=== PATIENT | female | born 1975 | race African-American/Black ===

== ENCOUNTER 2020-06-14 15:36 | Emergency (ER) | payer BC ==
[2020-06-14] MEDS ORDERED: Ketorolac Tromethamine 30 MG/ML VIAL ONE (16:45)
== END 2020-06-14 18:00 | disposition home or self-care (01) ==
LOC: CSHERS 15:36
DX: M79.89 Other specified soft tissue disorders (principal); M79.662 Pain in left lower leg; E11.9 Type 2 diabetes mellitus without complications; I10 Essential (primary) hypertension; E66.9 Obesity, unspecified; Z79.84 Long term (current) use of oral hypoglycemic drugs; Z79.52 Long term (current) use of systemic steroids; Z79.899 Other long term (current) drug therapy
CPT/HCPCS: 96372; J1885

== ENCOUNTER 2021-01-01 09:31 | Emergency (ER) | payer BC, MEDICAID ==
[2021-01-01] MEDS ORDERED: Morphine 4 MG/ML VIAL ONE (10:52)
[2021-01-01] MEDS ORDERED: Ondansetron PF 4 MG/2 ML Vial ONE (10:53)
[2021-01-01 11:17] LABS: #Eosinphils 0.1 10x3/uL (0.0-0.5); #Monocytes 0.4 10x3/uL (0.0-1.1); #Neutrophils 3.3 10x3/uL (1.5-8.4); %Basophils 0.5 % (0.0-2.0); %Eosinophils 1.9 % (0.0-6.0); %Neutrophils 57.4 % (40.0-75.0); Hemoglobin 12.4 g/dL (12.0-15.5); Mean Corpuscular HGB CONC 31.2 g/dL (32.0-36.0); Mean Corpuscular Hemoglobin 25.6 pg (27.0-33.0); Mean Platelet Volume 9.3 fl (7.4-10.4); Platelet Count 338 10x3/uL (150-450); RBC Distribution Width 13.2 % (11.5-14.5); Red Blood Cell (RBC) Count 4.84 10x6/uL (3.90-5.03); White Blood Cell (WBC) Count 5.7 10x3/uL (3.5-10.5)
[2021-01-01 11:27] LABS: ALT (SGPT) 13 U/L (8-55); AST (SGOT) 12 U/L (5-34); Albumin 4.2 g/dL (3.5-5.0); Alkaline Phosphatase 59 U/L (40-110); Anion Gap 14 mmol/L (10-20); BUN (Urea Nitrogen) 9 mg/dL (7.0-18.7); Bilirubin, Total 0.5 mg/dL (0.2-1.2); Calc. Creatinine Clearance 0 mL/min (70-130); Carbon Dioxide 23 mmol/L (22-29); Chloride 104 mmol/L (98-107); Globulin 2.9 g/dL (2.4-3.5); Glucose 117 mg/dL (70-105); Potassium 3.9 mmol/L (3.5-5.1); Protein, Total 7.1 g/dL (6.0-8.3); Sodium 137 mmol/L (136-145)
[2021-01-01] MEDS ORDERED: Ketorolac Tromethamine 30 MG/ML VIAL ONE (12:24)
[2021-01-01] MEDS ORDERED: Diazepam 5 MG TAB ONE (12:24)
== END 2021-01-01 12:35 | disposition home or self-care (01) ==
LOC: CSHERS 09:31
DX: M79.621 Pain in right upper arm (principal); M54.9 Dorsalgia, unspecified; I10 Essential (primary) hypertension; Z79.899 Other long term (current) drug therapy
CPT/HCPCS: 74176; 80053; 84484; 85025; 93005; 96374; 96375; J1885; J2270; J2405

== ENCOUNTER → 2021-01-29 14:44 | Emergency (ER) | payer BC, MEDICAID ==
[2021-01-29 16:07] LABS: Hemoglobin 11.8 g/dL (12.0-15.5); Mean Corpuscular Volume 80.5 fl (81.6-98.3); Red Blood Cell (RBC) Count 4.57 10x6/uL (3.90-5.03)
[2021-01-29 16:08] LABS: #Monocytes 0.3 10x3/uL (0.0-1.1); #Neutrophils 1.9 10x3/uL (1.5-8.4); %Lymphocytes 44.9 % (18.0-47.0); %Monocytes 6.7 % (0.0-10.0); %Neutrophils 48.2 % (40.0-75.0); Mean Corpuscular HGB CONC 32.1 g/dL (32.0-36.0); Mean Corpuscular Hemoglobin 25.8 pg (27.0-33.0); Mean Platelet Volume 9.9 fl (7.4-10.4); Platelet Count 210 10x3/uL (150-450); RBC Distribution Width 13.2 % (11.5-14.5)
[2021-01-29 16:22] LABS: ALT (SGPT) 18 U/L (8-55); AST (SGOT) 21 U/L (5-34); Albumin 3.9 g/dL (3.5-5.0); Alkaline Phosphatase 48 U/L (40-110); Anion Gap 11 mmol/L (10-20); BUN (Urea Nitrogen) 7 mg/dL (7.0-18.7); Bilirubin, Total 0.7 mg/dL (0.2-1.2); Calc. Creatinine Clearance 0 mL/min (70-130); Calcium 8.2 mg/dL (7.8-10.44); Carbon Dioxide 27 mmol/L (22-29); Chloride 100 mmol/L (98-107); Globulin 3.3 g/dL (2.4-3.5); Glucose 127 mg/dL (70-105); Potassium 3.4 mmol/L (3.5-5.1); Protein, Total 7.2 g/dL (6.0-8.3); Sodium 135 mmol/L (136-145)
[2021-01-30 08:53] LABS: SARS-CoV-2 PCR by NAA DETECTED (NotDetected)
== END | disposition home or self-care (01) ==
LOC: CSHERS 14:44
DX: U07.1 COVID-19 (principal); I10 Essential (primary) hypertension
CPT/HCPCS: 71045; 80053; 85025; 93005; 93010; U0003; U0005

== ENCOUNTER 2021-02-04 17:55 | Inpatient (IN) | payer BC, MEDICAID ==
[2021-02-04] MEDS ORDERED: Dexamethasone 10 MG/ML VIAL ONE (18:33)
[2021-02-04 19:46] LABS: Hemoglobin 10.5 g/dL (12.0-15.5); Mean Corpuscular HGB CONC 31.8 g/dL (32.0-36.0); Mean Corpuscular Hemoglobin 25.7 pg (27.0-33.0); Mean Corpuscular Volume 80.7 fl (81.6-98.3); Mean Platelet Volume 10.3 fl (7.4-10.4); Platelet Count 394 10x3/uL (150-450); RBC Distribution Width 13.3 % (11.5-14.5); Red Blood Cell (RBC) Count 4.09 10x6/uL (3.90-5.03); White Blood Cell (WBC) Count 7.5 10x3/uL (3.5-10.5)
[2021-02-04 19:47] LABS: ALT (SGPT) 34 U/L (8-55); AST (SGOT) 60 U/L (5-34); Albumin 3.9 g/dL (3.5-5.0); Alkaline Phosphatase 50 U/L (40-110); Anion Gap 15 mmol/L (10-20); BUN (Urea Nitrogen) 9 mg/dL (7.0-18.7); Bilirubin, Total 1.1 mg/dL (0.2-1.2); Calc. Creatinine Clearance 0 mL/min (70-130); Calcium 8.4 mg/dL (7.8-10.44); Carbon Dioxide 27 mmol/L (22-29); Chloride 96 mmol/L (98-107); Globulin 3.5 g/dL (2.4-3.5); Glucose 133 mg/dL (70-105); Potassium 3.6 mmol/L (3.5-5.1); Protein, Total 7.4 g/dL (6.0-8.3); Sodium 134 mmol/L (136-145)
[2021-02-04 20:11] LABS: MDiff Complete? YES
[2021-02-04 20:14] LABS: Lymphocytes 23 % (21-51); Monocytes 3 % (0-10); Neutrophil 70 % (42-75); Reactive Lymphocytes 4 % (0-10)
[2021-02-04 20:16] LABS: Platelet Morphology Comment Appears Adequate; RBC Morphology Normal
[2021-02-04 20:30] LABS: BHCG - Serum Negative (NEGATIVE); Pregs Control Background? CLEAR/WHITE (CLR/WHITE); Pregs Control Bar Appear? YES (CONTROL BAR)
[2021-02-04] MEDS ORDERED: Ondansetron PF 4 MG/2 ML Vial IVP PRN (20:58)
[2021-02-04] MEDS ORDERED: Acetaminophen 325 MG TAB PO PRN (20:58)
[2021-02-04] MEDS ORDERED: Senokot S 8.6-50 MG TAB PO PRN (20:58)
[2021-02-04] MEDS ORDERED: Ondansetron ODT 4 MG TAB PO PRN (20:58)
[2021-02-04 21:19] LABS: CRP (Inflammatory) 10.81 mg/dL (= or < 0.5); Magnesium 2.2 mg/dL (1.6-2.6)
[2021-02-04] MEDS ORDERED: Aspirin 81 mg Enteric Coated Tablet PO SCH (22:00)
[2021-02-04] MEDS: Zinc Sulfate 220 MG CAP PO SCH (22:21)
[2021-02-04] MEDS: Ascorbic Acid 500 mg Chewable Tablet PO SCH (22:21)
[2021-02-04] MEDS: Guaifenesin DM 100-10/5 ML UDCUP PO PRN (22:22)
[2021-02-04 22:37] VITALS: BMI 43.2
[2021-02-04] MEDS ORDERED: FLU VACC QS2021-22(6MOS UP)/PF 60 MCG/0.5 ML SYRINGE IM ONE (23:00)
[2021-02-05 06:12] LABS: Anion Gap 15 mmol/L (10-20); BUN (Urea Nitrogen) 10 mg/dL (7.0-18.7); CRP (Inflammatory) 9.87 mg/dL (= or < 0.5); Calc. Creatinine Clearance 161 mL/min (70-130); Calcium 8.7 mg/dL (7.8-10.44); Carbon Dioxide 26 mmol/L (22-29); Chloride 99 mmol/L (98-107); Glucose 187 mg/dL (70-105); Potassium 3.7 mmol/L (3.5-5.1); Sodium 136 mmol/L (136-145)
[2021-02-05 06:59] LABS: Hemoglobin 10.7 g/dL (12.0-15.5); Mean Corpuscular Hemoglobin 25.5 pg (27.0-33.0); Mean Corpuscular Volume 79.5 fl (81.6-98.3); Platelet Count 416 10x3/uL (150-450); RBC Distribution Width 13.4 % (11.5-14.5)
[2021-02-05 07:31] LABS: MDiff Complete? YES
[2021-02-05 08:05] LABS: Band 3 % (5-11); Lymphocytes 20 % (21-51); Metamyelocyte 1 % (0-0); Monocytes 5 % (0-10); Neutrophil 67 % (42-75); Reactive Lymphocytes 4 % (0-10)
[2021-02-05 08:07] LABS: Hypochromia SLIGHT = 6-15 cells (100X) (0-5/hpf); Microcytosis SLIGHT = 6-15 cells (100X) (0-5/hpf); Platelet Morphology Comment Appears Adequate; Polychromasia SLIGHT = 2-3 cells (100X) (0-2/hpf)
[2021-02-05] MEDS: Enoxaparin Sodium 40 MG/0.4 ML SYRINGE SC SCH (08:57)
[2021-02-05] MEDS: Aspirin 81 mg Enteric Coated Tablet PO SCH (08:58)
[2021-02-05] MEDS ORDERED: Dexamethasone 4 mg/ml Vial SLOW IVP SCH (09:00)
[2021-02-05] MEDS ORDERED: REMDESIVIR 200 MG in Sodium Chloride 0.9% 250 ML 210 ML IV SCH (10:30)
[2021-02-05] MEDS: Mometasone 200 MCG/PUFF (1 INHALER) INH SCH ×2 (10:45→19:45)
[2021-02-05] MEDS: Cholecalciferol 1,000 UNITS (25 MCG) TAB PO SCH (21:00)
[2021-02-05] MEDS: Ascorbic Acid 500 mg Chewable Tablet PO SCH (22:09)
[2021-02-05] MEDS: Zinc Sulfate 220 MG CAP PO SCH (22:09)
[2021-02-06 05:59] LABS: ALT (SGPT) 30 U/L (8-55); AST (SGOT) 33 U/L (5-34); Albumin 3.5 g/dL (3.5-5.0); Alkaline Phosphatase 48 U/L (40-110); Bilirubin, Direct 0.4 mg/dL (0.1-0.3); Bilirubin, Total 0.8 mg/dL (0.2-1.2)
[2021-02-06] MEDS: Enoxaparin Sodium 40 MG/0.4 ML SYRINGE SC SCH (08:55)
[2021-02-06] MEDS: Aspirin 81 mg Enteric Coated Tablet PO SCH (08:55)
[2021-02-06] MEDS ORDERED: BARICITINIB 2 MG TAB PO SCH (09:00)
[2021-02-06] MEDS: REMDESIVIR 100 MG in Sodium Chloride 0.9% 250 ML 230 ML IV SCH (09:00)
[2021-02-06] MEDS ORDERED: Dexamethasone 20 MG/5 ML VIAL SLOW IVP SCH (09:00)
[2021-02-06] MEDS ORDERED: Dexamethasone 10 MG in Sodium Chloride 0.9% 50 ML IVPB SCH (09:00)
[2021-02-06] MEDS: Mometasone 200 MCG/PUFF (1 INHALER) INH SCH ×2 (14:38→20:00)
[2021-02-07] MEDS: Ascorbic Acid 500 mg Chewable Tablet PO SCH ×2 (06:07→06:08)
[2021-02-07] MEDS: Cholecalciferol 1,000 UNITS (25 MCG) TAB PO SCH ×2 (06:07→06:08)
[2021-02-07] MEDS: Zinc Sulfate 220 MG CAP PO SCH ×2 (06:07→06:08)
[2021-02-07 06:45] LABS: #Monocytes 0.8 10x3/uL (0.0-1.1); #Neutrophils 6.5 10x3/uL (1.5-8.4); %Basophils 0.2 % (0.0-2.0); %Eosinophils 0.2 % (0.0-6.0); %Lymphocytes 26.3 % (18.0-47.0); %Monocytes 7.4 % (0.0-10.0); %Neutrophils 63.9 % (40.0-75.0); Hemoglobin 10.2 g/dL (12.0-15.5); Mean Corpuscular Hemoglobin 25.2 pg (27.0-33.0); Mean Corpuscular Volume 81.4 fl (81.6-98.3); Mean Platelet Volume 9.8 fl (7.4-10.4); Platelet Count 511 10x3/uL (150-450); RBC Distribution Width 13.6 % (11.5-14.5); Red Blood Cell (RBC) Count 4.04 10x6/uL (3.90-5.03); White Blood Cell (WBC) Count 10.1 10x3/uL (3.5-10.5)
[2021-02-07 07:02] LABS: ALT (SGPT) 28 U/L (8-55); AST (SGOT) 23 U/L (5-34); Albumin 3.6 g/dL (3.5-5.0); Alkaline Phosphatase 49 U/L (40-110); Anion Gap 14 mmol/L (10-20); BUN (Urea Nitrogen) 11 mg/dL (7.0-18.7); Bilirubin, Direct 0.3 mg/dL (0.1-0.3); Bilirubin, Total 0.6 mg/dL (0.2-1.2); Calc. Creatinine Clearance 184 mL/min (70-130); Calcium 8.5 mg/dL (7.8-10.44); Carbon Dioxide 27 mmol/L (22-29); Chloride 100 mmol/L (98-107); Glucose 125 mg/dL (70-105); Potassium 3.4 mmol/L (3.5-5.1); Sodium 138 mmol/L (136-145)
[2021-02-07] MEDS: Mometasone 200 MCG/PUFF (1 INHALER) INH SCH ×2 (08:10→19:25)
[2021-02-07] MEDS ORDERED: Potassium Chloride 20 MEQ TAB PO SCH (09:00)
[2021-02-07] MEDS: Enoxaparin Sodium 40 MG/0.4 ML SYRINGE SC SCH (09:01)
[2021-02-07] MEDS: Dexamethasone 20 MG/5 ML VIAL SLOW IVP SCH (09:01)
[2021-02-07] MEDS: Aspirin 81 mg Enteric Coated Tablet PO SCH (09:01)
[2021-02-07] MEDS: REMDESIVIR 100 MG in Sodium Chloride 0.9% 250 ML 230 ML IV SCH (10:19)
[2021-02-07] MEDS: Guaifenesin DM 100-10/5 ML UDCUP PO PRN (23:03)
[2021-02-07] MEDS: Zolpidem Tartrate 5 MG TAB PO PRN (23:03)
[2021-02-08 05:16] LABS: ALT (SGPT) 26 U/L (8-55); AST (SGOT) 24 U/L (5-34); Albumin 3.2 g/dL (3.5-5.0); Alkaline Phosphatase 45 U/L (40-110); Anion Gap 13 mmol/L (10-20); BUN (Urea Nitrogen) 10 mg/dL (7.0-18.7); Bilirubin, Direct 0.3 mg/dL (0.1-0.3); Bilirubin, Total 0.5 mg/dL (0.2-1.2); Calc. Creatinine Clearance 189 mL/min (70-130); Calcium 8.3 mg/dL (7.8-10.44); Carbon Dioxide 26 mmol/L (22-29); Chloride 104 mmol/L (98-107); Glucose 130 mg/dL (70-105); Potassium 3.6 mmol/L (3.5-5.1); Protein, Total 6.3 g/dL (6.0-8.3); Sodium 139 mmol/L (136-145)
[2021-02-08 05:26] LABS: #Eosinphils 0.1 10x3/uL (0.0-0.5); #Monocytes 0.7 10x3/uL (0.0-1.1); #Neutrophils 6.4 10x3/uL (1.5-8.4); %Basophils 0.3 % (0.0-2.0); %Eosinophils 0.7 % (0.0-6.0); %Lymphocytes 26.5 % (18.0-47.0); %Monocytes 6.3 % (0.0-10.0); %Neutrophils 61.9 % (40.0-75.0); Hemoglobin 9.4 g/dL (12.0-15.5); Mean Corpuscular HGB CONC 31.5 g/dL (32.0-36.0); Mean Corpuscular Hemoglobin 25.8 pg (27.0-33.0); Mean Corpuscular Volume 81.6 fl (81.6-98.3); Mean Platelet Volume 9.4 fl (7.4-10.4); Platelet Count 474 10x3/uL (150-450); RBC Distribution Width 13.8 % (11.5-14.5); Red Blood Cell (RBC) Count 3.65 10x6/uL (3.90-5.03); White Blood Cell (WBC) Count 10.3 10x3/uL (3.5-10.5)
[2021-02-08] MEDS: Zinc Sulfate 220 MG CAP PO SCH (05:33)
[2021-02-08] MEDS: Ascorbic Acid 500 mg Chewable Tablet PO SCH (05:33)
[2021-02-08] MEDS: Cholecalciferol 1,000 UNITS (25 MCG) TAB PO SCH (05:34)
[2021-02-08] MEDS: Guaifenesin DM 100-10/5 ML UDCUP PO PRN ×2 (05:35→21:00)
[2021-02-08] MEDS: Mometasone 200 MCG/PUFF (1 INHALER) INH SCH ×2 (08:20→19:34)
[2021-02-08] MEDS: Enoxaparin Sodium 40 MG/0.4 ML SYRINGE SC SCH (09:07)
[2021-02-08] MEDS: Dexamethasone 20 MG/5 ML VIAL SLOW IVP SCH (09:07)
[2021-02-08] MEDS: Aspirin 81 mg Enteric Coated Tablet PO SCH (09:07)
[2021-02-08] MEDS: REMDESIVIR 100 MG in Sodium Chloride 0.9% 250 ML 230 ML IV SCH (09:08)
[2021-02-08] MEDS: Zolpidem Tartrate 5 MG TAB PO PRN (21:00)
[2021-02-09 05:09] LABS: #Eosinphils 0.1 10x3/uL (0.0-0.5); #Monocytes 0.6 10x3/uL (0.0-1.1); #Neutrophils 8.2 10x3/uL (1.5-8.4); %Basophils 0.2 % (0.0-2.0); %Eosinophils 0.5 % (0.0-6.0); %Lymphocytes 24.2 % (18.0-47.0); %Monocytes 4.8 % (0.0-10.0); %Neutrophils 65.3 % (40.0-75.0); Hemoglobin 9.9 g/dL (12.0-15.5); Mean Corpuscular HGB CONC 31.4 g/dL (32.0-36.0); Mean Corpuscular Hemoglobin 25.5 pg (27.0-33.0); Mean Corpuscular Volume 81.2 fl (81.6-98.3); Mean Platelet Volume 9.7 fl (7.4-10.4); Platelet Count 521 10x3/uL (150-450); RBC Distribution Width 13.9 % (11.5-14.5); Red Blood Cell (RBC) Count 3.88 10x6/uL (3.90-5.03); White Blood Cell (WBC) Count 12.6 10x3/uL (3.5-10.5)
[2021-02-09 05:12] LABS: ALT (SGPT) 32 U/L (8-55); AST (SGOT) 26 U/L (5-34); Albumin 3.3 g/dL (3.5-5.0); Alkaline Phosphatase 54 U/L (40-110); Anion Gap 12 mmol/L (10-20); BUN (Urea Nitrogen) 10 mg/dL (7.0-18.7); Bilirubin, Direct 0.3 mg/dL (0.1-0.3); Bilirubin, Total 0.5 mg/dL (0.2-1.2); Calc. Creatinine Clearance 184 mL/min (70-130); Calcium 8.3 mg/dL (7.8-10.44); Carbon Dioxide 27 mmol/L (22-29); Chloride 103 mmol/L (98-107); Glucose 137 mg/dL (70-105); Potassium 4.2 mmol/L (3.5-5.1); Protein, Total 6.4 g/dL (6.0-8.3); Sodium 138 mmol/L (136-145)
[2021-02-09] MEDS: Zinc Sulfate 220 MG CAP PO SCH (05:18)
[2021-02-09] MEDS: Cholecalciferol 1,000 UNITS (25 MCG) TAB PO SCH (05:18)
[2021-02-09] MEDS: Ascorbic Acid 500 mg Chewable Tablet PO SCH (05:18)
[2021-02-09] MEDS: Mometasone 200 MCG/PUFF (1 INHALER) INH SCH (07:11)
[2021-02-09] MEDS: Enoxaparin Sodium 40 MG/0.4 ML SYRINGE SC SCH (09:13)
[2021-02-09] MEDS: REMDESIVIR 100 MG in Sodium Chloride 0.9% 250 ML 230 ML IV SCH (09:13)
[2021-02-09] MEDS: Dexamethasone 20 MG/5 ML VIAL SLOW IVP SCH (09:13)
[2021-02-09] MEDS: Aspirin 81 mg Enteric Coated Tablet PO SCH (09:13)
[2021-02-09 11:39] VITALS: BP 117/66; TEMP 98.5
[2021-02-10] MEDS ORDERED: predniSONE 20 MG TAB PO SCH (08:00)
[2021-02-10] MEDS ORDERED: Amlodipine 10 MG TAB PO SCH (09:00)
== END 2021-02-09 13:59 | disposition home health service (06) | DRG 177 ==
LOC: CSHERS 17:55 → CSHTELE 17:56
PROVIDERS: ADMIT Family Medicine; ATTEND Internal Medicine
PROC: 8E0ZXY6 Isolation (ICD-10-PCS; principal; 2021-02-04)
PROC: XW033E5 Introduction of Remdesivir Anti-infective into Peripheral Vein, Percutaneous Approach, New Technology Group 5 (ICD-10-PCS; 2021-02-05)
PROC: 3E0333Z Introduction of Anti-inflammatory into Peripheral Vein, Percutaneous Approach (ICD-10-PCS; 2021-02-05)
PROC: XW0DXM6 Introduction of Baricitinib into Mouth and Pharynx, External Approach, New Technology Group 6 (ICD-10-PCS; 2021-02-06)
DX: U07.1 COVID-19 (principal); J12.82 Pneumonia due to coronavirus disease 2019; J96.01 Acute respiratory failure with hypoxia; Z68.41 Body mass index [BMI] 40.0-44.9, adult; E66.01 Morbid (severe) obesity due to excess calories; L80 Vitiligo; I10 Essential (primary) hypertension; F32.A Depression, unspecified; Z79.899 Other long term (current) drug therapy; Z90.711 Acquired absence of uterus with remaining cervical stump
CPT/HCPCS: 36415; 71045; 71275; 80048; 80053; 80076; 83735; 84484; 84703; 85025; 85379; 86140; 93005; 93306; 94664; 94760; 96374; J1100; J1650; J7050

== ENCOUNTER 2021-07-12 09:05 | Emergency (ER) | payer BC, MEDICAID ==
[2021-07-12] MEDS ORDERED: Ketorolac Tromethamine 30 MG/ML VIAL ONE (10:24)
== END 2021-07-12 10:50 | disposition home or self-care (01) ==
LOC: CSHERS 09:05
DX: S93.402A Sprain of unspecified ligament of left ankle, initial encounter (principal); M54.2 Cervicalgia; M54.50 Low back pain, unspecified; I10 Essential (primary) hypertension; E11.9 Type 2 diabetes mellitus without complications
CPT/HCPCS: 96372; J1885

== ENCOUNTER 2021-08-23 21:16 | Emergency (ER) | payer BC, MEDICAID ==
[2021-08-23] MEDS ORDERED: Ketorolac Tromethamine 30 MG/ML VIAL ONE (21:47)
== END 2021-08-23 22:11 | disposition home or self-care (01) ==
LOC: CSHERS 21:16
DX: M25.572 Pain in left ankle and joints of left foot (principal); G89.29 Other chronic pain; M62.838 Other muscle spasm; I10 Essential (primary) hypertension; E11.9 Type 2 diabetes mellitus without complications
CPT/HCPCS: 96372; 99283; J1885

== ENCOUNTER 2021-08-28 18:37 | Emergency (ER) | payer MEDICAID, BC ==
[2021-08-28] MEDS ORDERED: HYDROcodone/Acetaminophen 10/325 mg Tablet ONE (19:35)
== END 2021-08-28 20:10 | disposition home or self-care (01) ==
LOC: CSHERS 18:37
DX: S70.01XA Contusion of right hip, initial encounter (principal); S09.90XA Unspecified injury of head, initial encounter; I10 Essential (primary) hypertension; E11.9 Type 2 diabetes mellitus without complications; W10.9XXA Fall (on) (from) unspecified stairs and steps, initial encounter
CPT/HCPCS: 70450

== ENCOUNTER 2021-11-25 03:17 | Emergency (ER) | payer BC, MEDICAID ==
[2021-11-25] MEDS ORDERED: Benzonatate 100 MG CAP ONE (03:56)
[2021-11-25] MEDS ORDERED: methylPREDNISolone Sod Succ/PF 125 MG/2 ML VIAL ONE (03:56)
== END 2021-11-25 04:04 | disposition home or self-care (01) ==
LOC: CSHERS 03:17
DX: J02.9 Acute pharyngitis, unspecified (principal); I10 Essential (primary) hypertension; E11.9 Type 2 diabetes mellitus without complications
CPT/HCPCS: 96372; 99283; J2930

== ENCOUNTER 2021-12-11 10:17 | Outpatient (CLI) | payer BC, MEDICAID | END 2021-12-11 10:18 | disposition home or self-care (01) | LOC: CSHRAD 10:17 | PROVIDERS: ATTEND Family Medicine | DX: J18.9 Pneumonia, unspecified organism (principal); R09.89 Other specified symptoms and signs involving the circulatory and respiratory systems | CPT/HCPCS: 71046 ==

== ENCOUNTER 2021-12-31 09:35 | Emergency (ER) | payer BC, MEDICAID ==
[2021-12-31 11:12] LABS: #Eosinphils 0.1 10x3/uL (0.0-0.5); #Monocytes 0.5 10x3/uL (0.0-1.1); #Neutrophils 3.1 10x3/uL (1.5-8.4); %Basophils 0.5 % (0.0-2.0); %Eosinophils 1.8 % (0.0-6.0); %Lymphocytes 43.8 % (18.0-47.0); %Monocytes 6.9 % (0.0-10.0); %Neutrophils 46.7 % (40.0-75.0); Mean Corpuscular HGB CONC 32.4 g/dL (32.0-36.0); Mean Corpuscular Hemoglobin 26.3 pg (27.0-33.0); Mean Corpuscular Volume 81.1 fl (81.6-98.3); Mean Platelet Volume 9.6 fl (7.4-10.4); Platelet Count 362 10x3/uL (150-450); RBC Distribution Width 12.8 % (11.5-14.5); Red Blood Cell (RBC) Count 4.56 10x6/uL (3.90-5.03); White Blood Cell (WBC) Count 6.6 10x3/uL (3.5-10.5)
[2021-12-31 11:23] LABS: BHCG - Serum Negative (NEGATIVE); Pregs Control Background? CLEAR/WHITE (CLR/WHITE); Pregs Control Bar Appear? YES (CONTROL BAR)
[2021-12-31 11:26] LABS: ALT (SGPT) 11 U/L (8-55); AST (SGOT) 13 U/L (5-34); Albumin 3.8 g/dL (3.5-5.0); Alkaline Phosphatase 59 U/L (40-110); Anion Gap 11 mmol/L (10-20); BUN (Urea Nitrogen) 8 mg/dL (7.0-18.7); Bilirubin, Total 0.4 mg/dL (0.2-1.2); Calc. Creatinine Clearance 0 mL/min (70-130); Calcium 8.6 mg/dL (7.8-10.44); Carbon Dioxide 24 mmol/L (22-29); Chloride 105 mmol/L (98-107); Estimated GFR 99; Globulin 2.8 g/dL (2.4-3.5); Glucose 152 mg/dL (70-105); Potassium 3.8 mmol/L (3.5-5.1); Protein, Total 6.6 g/dL (6.0-8.3); Sodium 136 mmol/L (136-145)
[2021-12-31] MEDS ORDERED: Iopamidol 300 61% 100 ML VIAL FS ONE (13:47)
== END 2021-12-31 12:29 | disposition home or self-care (01) ==
LOC: CSHERS 09:35
DX: J02.9 Acute pharyngitis, unspecified (principal); I10 Essential (primary) hypertension; E11.9 Type 2 diabetes mellitus without complications
CPT/HCPCS: 36415; 70491; 71045; 80053; 84703; 85025; Q9967

== ENCOUNTER 2022-01-28 09:17 | Emergency (ER) | payer BC, MEDICAID ==
[2022-01-28] MEDS ORDERED: Iopamidol 300 61% 100 ML VIAL FS ONE (09:59)
[2022-01-28] MEDS ORDERED: Ketorolac Tromethamine 30 MG/ML VIAL ONE (10:36)
[2022-01-28 10:42] LABS: #Eosinphils 0.1 10x3/uL (0.0-0.5); #Monocytes 0.4 10x3/uL (0.0-1.1); #Neutrophils 2.8 10x3/uL (1.5-8.4); %Basophils 0.3 % (0.0-2.0); %Lymphocytes 44.4 % (18.0-47.0); %Monocytes 6.4 % (0.0-10.0); %Neutrophils 46.7 % (40.0-75.0); Hemoglobin 12.2 g/dL (12.0-15.5); Mean Corpuscular HGB CONC 33.5 g/dL (32.0-36.0); Mean Corpuscular Hemoglobin 26.6 pg (27.0-33.0); Mean Corpuscular Volume 79.3 fl (81.6-98.3); Platelet Count 366 10x3/uL (150-450); RBC Distribution Width 12.6 % (11.5-14.5); Red Blood Cell (RBC) Count 4.59 10x6/uL (3.90-5.03); White Blood Cell (WBC) Count 5.9 10x3/uL (3.5-10.5)
[2022-01-28 11:09] LABS: ALT (SGPT) 14 U/L (8-55); AST (SGOT) 14 U/L (5-34); Albumin 4.2 g/dL (3.5-5.0); Alkaline Phosphatase 66 U/L (40-110); Anion Gap 12 mmol/L (10-20); BUN (Urea Nitrogen) 10 mg/dL (7.0-18.7); Bilirubin, Total 0.4 mg/dL (0.2-1.2); Calc. Creatinine Clearance 0 mL/min (70-130); Calcium 9.7 mg/dL (7.8-10.44); Carbon Dioxide 26 mmol/L (22-29); Chloride 100 mmol/L (98-107); Estimated GFR 99; Glucose 247 mg/dL (70-105); Potassium 3.6 mmol/L (3.5-5.1); Protein, Total 7.2 g/dL (6.0-8.3); Sodium 134 mmol/L (136-145)
[2022-01-28] MEDS ORDERED: Morphine 4 MG/ML VIAL ONE (12:40)
== END 2022-01-28 13:55 | disposition home or self-care (01) ==
LOC: CSHERS 09:17
DX: R49.0 Dysphonia (principal); M54.9 Dorsalgia, unspecified; I10 Essential (primary) hypertension; E11.9 Type 2 diabetes mellitus without complications
CPT/HCPCS: 36415; 70491; 80053; 85025; 85652; 86140; 96374; 96375; J1885; J2270

== ENCOUNTER 2022-03-19 14:53 | Emergency (ER) | payer BC, MEDICAID, SELFPAY ==
[2022-03-19] MEDS ORDERED: diphenhydrAMINE 50 MG/ML VIAL ONE (15:32)
[2022-03-19] MEDS ORDERED: Ketorolac Tromethamine 30 MG/ML VIAL ONE (15:32)
[2022-03-19] MEDS ORDERED: Metoclopramide HCl 10 MG/2 ML VIAL ONE (15:32)
[2022-03-19 16:07] LABS: #Eosinphils 0.1 10x3/uL (0.0-0.5); #Monocytes 0.5 10x3/uL (0.0-1.1); #Neutrophils 5.3 10x3/uL (1.5-8.4); %Basophils 0.4 % (0.0-2.0); %Eosinophils 1.1 % (0.0-6.0); %Lymphocytes 30.1 % (18.0-47.0); %Monocytes 5.3 % (0.0-10.0); %Neutrophils 62.7 % (40.0-75.0); Hemoglobin 12.6 g/dL (12.0-15.5); Mean Corpuscular HGB CONC 32.5 g/dL (32.0-36.0); Mean Corpuscular Hemoglobin 26.4 pg (27.0-33.0); Mean Corpuscular Volume 81.3 fl (81.6-98.3); Mean Platelet Volume 10.1 fl (7.4-10.4); Platelet Count 380 10x3/uL (150-450); RBC Distribution Width 13.1 % (11.5-14.5); Red Blood Cell (RBC) Count 4.77 10x6/uL (3.90-5.03); White Blood Cell (WBC) Count 8.5 10x3/uL (3.5-10.5)
[2022-03-19 16:23] LABS: ALT (SGPT) 16 U/L (8-55); AST (SGOT) 15 U/L (5-34); Albumin 4.1 g/dL (3.5-5.0); Alkaline Phosphatase 60 U/L (40-110); Anion Gap 14 mmol/L (10-20); BUN (Urea Nitrogen) 9 mg/dL (7.0-18.7); Bilirubin, Total 0.4 mg/dL (0.2-1.2); Calc. Creatinine Clearance 0 mL/min (70-130); Calcium 9.2 mg/dL (7.8-10.44); Carbon Dioxide 24 mmol/L (22-29); Chloride 104 mmol/L (98-107); Estimated GFR 105; Glucose 127 mg/dL (70-105); Magnesium 1.4 mg/dL (1.6-2.6); Potassium 3.3 mmol/L (3.5-5.1); Protein, Total 7.1 g/dL (6.0-8.3); Sodium 139 mmol/L (136-145)
[2022-03-19 16:25] LABS: BHCG - Serum Negative (NEGATIVE); Pregs Control Background? CLEAR/WHITE (CLR/WHITE); Pregs Control Bar Appear? YES (CONTROL BAR)
[2022-03-19] MEDS ORDERED: Potassium Chloride 20 MEQ TAB ONE (16:34)
[2022-03-19] MEDS ORDERED: Magnesium 2 GM/50 ML BAG (IN WATER) ONE (16:35)
== END 2022-03-19 17:56 | disposition home or self-care (01) ==
LOC: CSHERS 14:53
DX: R19.7 Diarrhea, unspecified (principal); E87.6 Hypokalemia; E83.42 Hypomagnesemia; Z20.822 Contact with and (suspected) exposure to COVID-19; I10 Essential (primary) hypertension; E11.9 Type 2 diabetes mellitus without complications
CPT/HCPCS: 80053; 83735; 84703; 85025; 87804; 96374; 96375; J1200; J1885; J2765; J3475; U0003; U0005

== ENCOUNTER 2022-04-22 13:15 | Emergency (ER) | payer MEDICAID ==
[2022-04-22] MEDS ORDERED: Ketorolac Tromethamine 30 MG/ML VIAL ONE (15:59)
== END 2022-04-22 16:35 | disposition home or self-care (01) ==
LOC: CSHERS 13:15
DX: J01.90 Acute sinusitis, unspecified (principal); I10 Essential (primary) hypertension; E11.9 Type 2 diabetes mellitus without complications
CPT/HCPCS: 71045; 87081; 87430; 87804; 96372; J1885

== ENCOUNTER 2022-10-16 10:55 | Emergency (ER) | payer OTHER, MEDICAID ==
[2022-10-16] MEDS ORDERED: Acetaminophen 500 MG TAB ONE (12:49)
[2022-10-16] MEDS ORDERED: Ondansetron ODT 4 MG TAB ONE (12:49)
[2022-10-16 13:00] LABS: SARS-CoV-2 NAA Rapid Test DETECTED (NotDetected)
[2022-10-16 13:16] LABS: #Eosinphils 0.1 10x3/uL (0.0-0.5); #Monocytes 0.6 10x3/uL (0.0-1.1); #Neutrophils 1.4 10x3/uL (1.5-8.4); %Basophils 0.4 % (0.0-2.0); %Eosinophils 1.3 % (0.0-6.0); %Monocytes 12.2 % (0.0-10.0); %Neutrophils 31.9 % (40.0-75.0); Hematocrit 39.9 % (34.9-44.5); Hemoglobin 12.6 g/dL (12.0-15.5); Mean Corpuscular HGB CONC 31.6 g/dL (32.0-36.0); Mean Corpuscular Hemoglobin 25.5 pg (27.0-33.0); Mean Corpuscular Volume 80.8 fl (81.6-98.3); Mean Platelet Volume 9.8 fl (7.4-10.4); Platelet Count 297 10x3/uL (150-450); RBC Distribution Width 12.7 % (11.5-14.5); Red Blood Cell (RBC) Count 4.94 10x6/uL (3.90-5.03); White Blood Cell (WBC) Count 4.5 10x3/uL (3.5-10.5)
[2022-10-16 13:34] LABS: ALT (SGPT) 14 U/L (8-55); AST (SGOT) 15 U/L (5-34); Albumin 3.5 g/dL (3.5-5.0); Alkaline Phosphatase 48 U/L (40-110); Anion Gap 13 mmol/L (10-20); BUN (Urea Nitrogen) 6 mg/dL (7.0-18.7); Bilirubin, Total 0.5 mg/dL (0.2-1.2); Calc. Creatinine Clearance 0 mL/min (70-130); Calcium 8.3 mg/dL (7.8-10.44); Carbon Dioxide 25 mmol/L (22-29); Chloride 103 mmol/L (98-107); Estimated GFR 92; Globulin 2.2 g/dL (2.4-3.5); Glucose 200 mg/dL (70-105); Potassium 3.7 mmol/L (3.5-5.1); Protein, Total 5.7 g/dL (6.0-8.3); Sodium 137 mmol/L (136-145)
[2022-10-16 13:41] LABS: Troponin I Less than 0.010 ng/mL (< 0.028)
== END 2022-10-16 14:30 | disposition home or self-care (01) ==
LOC: CSHERS 10:55
DX: U07.1 COVID-19 (principal); E11.9 Type 2 diabetes mellitus without complications; I10 Essential (primary) hypertension
CPT/HCPCS: 36415; 71045; 80053; 84484; 85025; 93005; Q0162

== ENCOUNTER 2022-12-07 04:52 | Emergency (ER) | payer OTHER, MEDICAID ==
[2022-12-07] MEDS ORDERED: Lidocaine Viscous Sol 2% 15 ml UD Cup SSW SCH (06:15)
[2022-12-07] MEDS ORDERED: Dexamethasone 10 MG/ML VIAL ONE (06:24)
[2022-12-07 06:59] LABS: SARS-CoV-2 NAA Rapid Test Not Detected (NotDetected)
== END 2022-12-07 07:13 | disposition home or self-care (01) ==
LOC: CSHERS 04:52
DX: J04.0 Acute laryngitis (principal); J06.9 Acute upper respiratory infection, unspecified; I10 Essential (primary) hypertension; E11.9 Type 2 diabetes mellitus without complications; Z79.899 Other long term (current) drug therapy; Z20.822 Contact with and (suspected) exposure to COVID-19
CPT/HCPCS: 99283; J1100

== ENCOUNTER 2022-12-28 11:01 | Emergency (ER) | payer OTHER, MEDICAID ==
[2022-12-28] MEDS ORDERED: Clindamycin 150 MG CAP ONE (11:22)
[2022-12-28] MEDS ORDERED: Ketorolac Tromethamine 30 MG/ML VIAL ONE (11:22)
== END 2022-12-28 11:54 | disposition home or self-care (01) ==
LOC: CSHERS 11:01
DX: K04.7 Periapical abscess without sinus (principal); K02.9 Dental caries, unspecified; I10 Essential (primary) hypertension; E11.9 Type 2 diabetes mellitus without complications
CPT/HCPCS: 96372; 99283; J1885

== ENCOUNTER 2023-02-19 11:13 | Emergency (ER) | payer MEDICAID, OTHER, SELFPAY ==
[2023-02-19 12:11] LABS: #Eosinphils 0.1 10x3/uL (0.0-0.5); #Monocytes 0.4 10x3/uL (0.0-1.1); %Basophils 0.3 % (0.0-2.0); %Eosinophils 0.8 % (0.0-6.0); %Neutrophils 57.7 % (40.0-75.0); Hematocrit 43.2 % (34.9-44.5); Hemoglobin 13.6 g/dL (12.0-15.5); Mean Corpuscular HGB CONC 31.5 g/dL (32.0-36.0); Mean Corpuscular Hemoglobin 26.1 pg (27.0-33.0); Mean Corpuscular Volume 82.8 fl (81.6-98.3); Mean Platelet Volume 10.2 fl (7.4-10.4); Platelet Count 336 10x3/uL (150-450); RBC Distribution Width 12.8 % (11.5-14.5); Red Blood Cell (RBC) Count 5.22 10x6/uL (3.90-5.03); White Blood Cell (WBC) Count 8.7 10x3/uL (3.5-10.5)
[2023-02-19 12:28] LABS: SARS-CoV-2 NAA Rapid Test Not Detected (NotDetected)
[2023-02-19 12:55] LABS: ALT (SGPT) 16 U/L (8-55); AST (SGOT) 16 U/L (5-34); Albumin 4.4 g/dL (3.5-5.0); Alkaline Phosphatase 78 U/L (40-110); Anion Gap 14 mmol/L (10-20); BUN (Urea Nitrogen) 9 mg/dL (7.0-18.7); Bilirubin, Total 0.7 mg/dL (0.2-1.2); Calc. Creatinine Clearance 0 mL/min (70-130); Calcium 9.5 mg/dL (7.8-10.44); Carbon Dioxide 24 mmol/L (22-29); Chloride 101 mmol/L (98-107); Estimated GFR 86; Globulin 3.2 g/dL (2.4-3.5); Glucose 318 mg/dL (70-105); Potassium 4.4 mmol/L (3.5-5.1); Protein, Total 7.6 g/dL (6.0-8.3); Sodium 135 mmol/L (136-145)
[2023-02-19 13:03] LABS: Troponin I Less than 0.010 ng/mL (< 0.028)
[2023-02-19] MEDS ORDERED: Aspirin Chewable 81 MG TAB ONE (13:35)
[2023-02-19] MEDS ORDERED: Acetaminophen 325 MG TAB ONE (13:35)
[2023-02-19 15:59] LABS: Troponin I Less than 0.010 ng/mL (< 0.028)
== END 2023-02-19 17:30 | disposition home or self-care (01) ==
LOC: CSHERS 11:13
DX: J06.9 Acute upper respiratory infection, unspecified (principal); R07.9 Chest pain, unspecified; I10 Essential (primary) hypertension; E11.9 Type 2 diabetes mellitus without complications
CPT/HCPCS: 71045; 80053; 83690; 84484; 85025; 87081; 87430; 93005

== ENCOUNTER 2023-08-15 10:32 | Emergency (ER) | payer OTHER ==
[2023-08-15] MEDS ORDERED: Acetaminophen/Codeine 30-300mg Tablet ONE (11:04)
[2023-08-15] MEDS ORDERED: Ketorolac Tromethamine 30 MG (1 mL) VIAL ONE (11:04)
[2023-08-15 11:14] LABS: Bilirubin Neg (Negative); Blood, Urine 25 (Negative); Glucose, Urine (Dipstick) 100 mg/dL (Negative); Ketone, Urine Negative (Negative); Leukocyte Negative (Negative); Nitrite Negative (Negative); Protein, Urine (Dipstick) 15 mg/dl (Neg-Trace)
[2023-08-15 11:28] LABS: Clarity Hazy (Clear)
[2023-08-15 11:29] LABS: Bacteria/HPF Rare-Few HPF (None Seen); CAUTI Indications for Culture Pelvic or flank pain; Mucous/LPF 2+ LPF (<2+); Squamous Epithelial 21-50 HPF (0-3); WBC/HPF 0-3 HPF (0-3)
[2023-08-15 11:30] LABS: Urine Culture Reflex No No
[2023-08-15] MEDS ORDERED: Cyclobenzaprine 10 MG TAB ONE (11:43)
== END 2023-08-15 12:18 | disposition home or self-care (01) ==
LOC: CSHERS 10:32
DX: S39.012A Strain of muscle, fascia and tendon of lower back, initial encounter (principal); I10 Essential (primary) hypertension; E11.9 Type 2 diabetes mellitus without complications; X58.XXXA Exposure to other specified factors, initial encounter
CPT/HCPCS: 81001; 96372; 99284; J1885

== ENCOUNTER 2023-12-14 09:00 | Emergency (ER) | payer OTHER ==
[2023-12-14] MEDS ORDERED: Dexamethasone 10 MG/ML VIAL ONE (09:41)
== END 2023-12-14 10:18 | disposition home or self-care (01) ==
LOC: CSHERS 09:00
DX: J11.1 Influenza due to unidentified influenza virus with other respiratory manifestations (principal); I10 Essential (primary) hypertension; E11.9 Type 2 diabetes mellitus without complications
CPT/HCPCS: 71045; 87081; 87428; 87430; 96372; J1100

== ENCOUNTER 2024-01-18 09:33 | Emergency (ER) | payer OTHER, SELFPAY ==
[~2024-01-18 09:33] MED LIST: Iopamidol 300 61% 100 ML VIAL FS ONE
[2024-01-18 10:07] LABS: #Basophils 0.02 10x3/uL (0.0-0.2); #Eosinophils 0.08 10x3/uL (0.0-0.5); #Monocytes 0.41 10x3/uL (0.0-1.1); #Neutrophils 3.18 10x3/uL (1.5-8.4); %Basophils 0.3 % (0.0-2.0); %Eosinophils 1.2 % (0.0-6.0); %Lymphocytes 42.8 % (18.0-47.0); %Monocytes 6.3 % (0.0-10.0); %Neutrophils 48.8 % (40.0-75.0); Hemoglobin 12.8 g/dL (12.0-15.5); Mean Corpuscular HGB CONC 32.8 g/dL (32.0-36.0); Mean Corpuscular Hemoglobin 26.5 pg (27.0-33.0); Mean Corpuscular Volume 80.7 fL (81.6-98.3); Mean Platelet Volume 9.9 fL (7.4-10.4); Platelet Count 297 10x3/uL (150-450); RBC Distribution Width 12.9 % (11.5-14.5); Red Blood Cell (RBC) Count 4.83 10x6/uL (3.90-5.03); White Blood Cell (WBC) Count 6.5 10x3/uL (3.5-10.5)
[2024-01-18 10:15] LABS: BHCG - Serum Negative (NEGATIVE); Pregs Control Background? CLEAR/WHITE (CLR/WHITE); Pregs Control Bar Appear? YES (CONTROL BAR)
[2024-01-18 10:25] LABS: ALT (SGPT) 14 U/L (8-55); AST (SGOT) 13 U/L (5-34); Albumin 3.5 g/dL (3.5-5.0); Alkaline Phosphatase 67 U/L (40-110); Anion Gap 12 mmol/L (10-20); BUN (Urea Nitrogen) 7 mg/dL (7.0-18.7); Bilirubin, Total 0.6 mg/dL (0.2-1.2); Calc. Creatinine Clearance 0 mL/min (70-130); Calcium 8.7 mg/dL (7.8-10.44); Carbon Dioxide 22 mmol/L (22-29); Chloride 104 mmol/L (98-107); Estimated GFR 106; Globulin 2.9 g/dL (2.4-3.5); Glucose 237 mg/dL (70-105); Lipase 24 U/L (8-78); Protein, Total 6.4 g/dL (6.0-8.3); Sodium 134 mmol/L (136-145)
[2024-01-18] MEDS ORDERED: Ketorolac Tromethamine 30 MG (1 mL) VIAL ONE ×2 (10:35→19:31)
[2024-01-18] MEDS ORDERED: Cyclobenzaprine 10 MG TAB ONE (10:35)
[2024-01-18] MEDS ORDERED: Morphine 4 MG/ML VIAL ONE ×3 (10:35→16:11)
[2024-01-18] MEDS ORDERED: Lidocaine 4% Patch ONE (10:35)
[2024-01-18] MEDS ORDERED: Ondansetron PF 4 MG/2 ML Vial ONE ×2 (10:35→17:11)
[2024-01-18 11:54] LABS: Bilirubin Neg (Negative); Blood, Urine Negative (Negative); Clarity Clear (Clear); Glucose, Urine (Dipstick) 250 mg/dL (Negative); Ketone, Urine Negative (Negative); Leukocyte Negative (Negative); Nitrite Negative (Negative); Protein, Urine (Dipstick) 15 mg/dl (Neg-Trace); Urobilinogen Normal mg/dL (Less than 2)
[2024-01-18 12:04] LABS: CAUTI Indications for Culture Pelvic or flank pain; RBC/HPF 0-3 HPF (0-3); WBC/HPF 0-3 HPF (0-3)
[2024-01-18 12:05] LABS: Bacteria/HPF 2+ HPF (None Seen); Urine Culture Reflex No No
[2024-01-18] MEDS ORDERED: HYDROcodone/Acetaminophen 5/325 mg Tablet ONE (14:24)
[2024-01-18] MEDS ORDERED: Bupivacaine HCl 0.5%/Epinephrine 1:200,000/PF 30 ml Vial ONE (16:50)
[2024-01-18] MEDS ORDERED: Lidocaine 2% PF 5 ML VIAL ONE (17:11)
[2024-01-18] MEDS ORDERED: Dexamethasone 20 MG/5 ML VIAL ONE (17:11)
[2024-01-18] MEDS ORDERED: SUGAMMADEX SODIUM 200 MG/2 ML VIAL ONE (17:11)
[2024-01-18] MEDS ORDERED: Rocuronium Bromide 10 MG/ML (10ML VIAL) ONE (17:11)
[2024-01-18] MEDS ORDERED: PROPOFOL 20 ML ONE ×2 (17:11→18:29)
[2024-01-18] MEDS ORDERED: SUCCINYLCHOLINE/SOD CL,ISO/PF 200 MG/10 ML SYRINGE FS ONE (17:11)
[2024-01-18] MEDS ORDERED: Fentanyl 250 MCG/5 ML VIAL ONE (17:11)
[2024-01-18] MEDS ORDERED: Midazolam HCl 2 mg/2 ml Vial ONE (17:11)
[2024-01-18] MEDS ORDERED: CEFAZOLIN 1 GM VIAL ONE (17:33)
[2024-01-18] MEDS ORDERED: Glycopyrrolate 0.2 MG/ML 5 ML SYRINGE ONE (17:50)
[2024-01-18] MEDS ORDERED: PHENYLEPHRINE-NS 100 MCG/ML 10 ML SYRINGE ONE (17:53)
[2024-01-18] MEDS ORDERED: HYDROcodone/Acetaminophen 5/325 mg Tablet PO PRN (18:46)
[2024-01-18] MEDS ORDERED: Ketorolac Tromethamine 30 MG (1 mL) VIAL IVP PRN (18:47)
[2024-01-18] MEDS ORDERED: Albuterol HFA (OR) 200 PUFF INH ONE (18:49)
[2024-01-18] MEDS ORDERED: Naloxone HCl 0.4 mg/ml Vial ONE (18:56)
[2024-01-18] MEDS ORDERED: Acetaminophen 650 MG/20.3 ML UDCUP ONE (19:59)
== END 2024-01-18 17:25 | disposition admitted as inpatient to this hospital (09) ==
LOC: CSHERS 09:33
DX: N83.202 Unspecified ovarian cyst, left side (principal); N83.512 Torsion of left ovary and ovarian pedicle; I10 Essential (primary) hypertension; E11.9 Type 2 diabetes mellitus without complications; Z55.0 Illiteracy and low-level literacy; Z79.85 Long-term (current) use of injectable non-insulin antidiabetic drugs; Z79.899 Other long term (current) drug therapy
CPT/HCPCS: 36416; 74177; 76856; 80053; 81001; 83690; 84703; 85025; 88305; 96374; 96375; 96376; C1889; J0690; J1100; J1885; J2250; J2272; J2310; J2405; J2704; J3010; Q9967

== ENCOUNTER 2024-02-08 16:44 | Emergency (ER) | payer SELFPAY ==
[2024-02-08] MEDS ORDERED: Morphine 4 MG/ML VIAL ONE (17:43)
[2024-02-08] MEDS ORDERED: Ondansetron PF 4 MG/2 ML Vial ONE (17:44)
[2024-02-08] MEDS ORDERED: Famotidine/PF 20 mg/2ml Vial ONE (17:44)
[2024-02-08 18:11] LABS: #Basophils 0.01 10x3/uL (0.0-0.2); #Eosinophils 0.05 10x3/uL (0.0-0.5); #Monocytes 0.24 10x3/uL (0.0-1.1); #Neutrophils 4.07 10x3/uL (1.5-8.4); %Basophils 0.2 % (0.0-2.0); %Eosinophils 0.9 % (0.0-6.0); %Lymphocytes 18.4 % (18.0-47.0); %Monocytes 4.5 % (0.0-10.0); %Neutrophils 75.6 % (40.0-75.0); Hematocrit 38.7 % (34.9-44.5); Hemoglobin 12.1 g/dL (12.0-15.5); Mean Corpuscular HGB CONC 31.3 g/dL (32.0-36.0); Mean Corpuscular Hemoglobin 25.7 pg (27.0-33.0); Mean Corpuscular Volume 82.2 fL (81.6-98.3); Mean Platelet Volume 9.9 fL (7.4-10.4); Platelet Count 328 10x3/uL (150-450); RBC Distribution Width 12.7 % (11.5-14.5); Red Blood Cell (RBC) Count 4.71 10x6/uL (3.90-5.03); White Blood Cell (WBC) Count 5.4 10x3/uL (3.5-10.5)
[2024-02-08 18:24] LABS: ALT (SGPT) 12 U/L (8-55); AST (SGOT) 11 U/L (5-34); Albumin 3.3 g/dL (3.5-5.0); Alkaline Phosphatase 68 U/L (40-110); Anion Gap 15 mmol/L (10-20); BUN (Urea Nitrogen) 7 mg/dL (7.0-18.7); Bilirubin, Total 0.4 mg/dL (0.2-1.2); Calc. Creatinine Clearance 0 mL/min (70-130); Calcium 8.5 mg/dL (7.8-10.44); Carbon Dioxide 21 mmol/L (22-29); Chloride 105 mmol/L (98-107); Estimated GFR 106; Glucose 215 mg/dL (70-105); Lipase 25 U/L (8-78); Potassium 3.6 mmol/L (3.5-5.1); Protein, Total 6.3 g/dL (6.0-8.3); Sodium 137 mmol/L (136-145)
== END 2024-02-08 19:10 | disposition home or self-care (01) ==
LOC: CSHERS 16:44
DX: R10.32 Left lower quadrant pain (principal); R10.12 Left upper quadrant pain; R11.2 Nausea with vomiting, unspecified; I10 Essential (primary) hypertension; E11.9 Type 2 diabetes mellitus without complications
CPT/HCPCS: 74177; 80053; 83690; 85025; 96374; 96375; J2272; J2405; J3490

== ENCOUNTER 2024-03-26 13:34 | Emergency (ER) | payer OTHER ==
[2024-03-26] MEDS ORDERED: diphenhydrAMINE 50 MG/ML VIAL ONE (14:59)
[2024-03-26] MEDS ORDERED: Ketorolac Tromethamine 30 MG (1 mL) VIAL ONE (14:59)
[2024-03-26] MEDS ORDERED: Prochlorperazine 10 MG/2 ML VIAL ONE (14:59)
[2024-03-26] MEDS ORDERED: Dexamethasone 10 MG/ML VIAL ONE (14:59)
[2024-03-26 15:57] LABS: #Basophils Less than 0.03 10x3/uL (0.0-0.2); #Eosinophils 0.07 10x3/uL (0.0-0.5); #Monocytes 0.41 10x3/uL (0.0-1.1); #Neutrophils 2.06 10x3/uL (1.5-8.4); %Basophils 0.4 % (0.0-2.0); %Eosinophils 1.3 % (0.0-6.0); %Monocytes 7.7 % (0.0-10.0); %Neutrophils 38.4 % (40.0-75.0); Hematocrit 37.7 % (34.9-44.5); Hemoglobin 12.6 g/dL (12.0-15.5); Mean Corpuscular HGB CONC 33.4 g/dL (32.0-36.0); Mean Corpuscular Hemoglobin 26.9 pg (27.0-33.0); Mean Corpuscular Volume 80.4 fL (81.6-98.3); Mean Platelet Volume 10.1 fL (7.4-10.4); Platelet Count 326 10x3/uL (150-450); RBC Distribution Width 13.2 % (11.5-14.5); Red Blood Cell (RBC) Count 4.69 10x6/uL (3.90-5.03); White Blood Cell (WBC) Count 5.35 10x3/uL (3.5-10.5)
[2024-03-26 16:11] LABS: ALT (SGPT) 11 U/L (Less than 34); AST (SGOT) 15 U/L (11-34); Albumin 3.8 g/dL (3.1-4.5); Alkaline Phosphatase 65 U/L (40-110); Anion Gap 15 mmol/L (10-20); BUN (Urea Nitrogen) 5 mg/dL (7.0-18.7); Bilirubin, Total 0.4 mg/dL (0.3-1.2); Calc. Creatinine Clearance 0 mL/min (70-130); Calcium 9.2 mg/dL (7.8-10.44); Carbon Dioxide 23 mmol/L (22-29); Chloride 105 mmol/L (98-107); Estimated GFR 110; Glucose 194 mg/dL (70-105); Lipase 22 U/L (8-78); Potassium 3.7 mmol/L (3.5-5.1); Protein, Total 6.8 g/dL (6.0-8.3); Sodium 139 mmol/L (136-145)
[2024-03-26 16:12] LABS: BHCG - Serum Negative (NEGATIVE); Pregs Control Background? CLEAR/WHITE (CLR/WHITE); Pregs Control Bar Appear? YES (CONTROL BAR)
== END 2024-03-26 16:28 | disposition home or self-care (01) ==
LOC: CSHERS 13:34
DX: G43.909 Migraine, unspecified, not intractable, without status migrainosus (principal); R19.7 Diarrhea, unspecified; R11.2 Nausea with vomiting, unspecified; E11.9 Type 2 diabetes mellitus without complications; I10 Essential (primary) hypertension; Z79.84 Long term (current) use of oral hypoglycemic drugs; Z79.899 Other long term (current) drug therapy
CPT/HCPCS: 80053; 83690; 84703; 85025; 87428; 96365; 96375; J0780; J1100; J1200; J1885

== ENCOUNTER 2024-03-29 13:46 | Emergency (ER) | payer OTHER ==
[2024-03-29] MEDS ORDERED: Acetaminophen 500 MG TAB ONE (16:19)
[2024-03-29] MEDS ORDERED: diphenhydrAMINE 50 MG/ML VIAL ONE (16:19)
[2024-03-29] MEDS ORDERED: Metoclopramide HCl 10 MG (2 mL) VIAL ONE (16:19)
[2024-03-29 16:29] LABS: #Basophils Less than 0.03 10x3/uL (0.0-0.2); #Eosinophils 0.09 10x3/uL (0.0-0.5); #Monocytes 0.43 10x3/uL (0.0-1.1); #Neutrophils 3.82 10x3/uL (1.5-8.4); %Basophils 0.2 % (0.0-2.0); %Eosinophils 1.1 % (0.0-6.0); %Lymphocytes 45.3 % (18.0-47.0); %Monocytes 5.4 % (0.0-10.0); %Neutrophils 47.8 % (40.0-75.0); Hematocrit 37.7 % (34.9-44.5); Hemoglobin 12.1 g/dL (12.0-15.5); Mean Corpuscular HGB CONC 32.1 g/dL (32.0-36.0); Mean Corpuscular Hemoglobin 25.7 pg (27.0-33.0); Mean Corpuscular Volume 80.2 fL (81.6-98.3); Mean Platelet Volume 9.2 fL (7.4-10.4); Platelet Count 317 10x3/uL (150-450); White Blood Cell (WBC) Count 8.01 10x3/uL (3.5-10.5)
[2024-03-29 16:48] LABS: ALT (SGPT) 14 U/L (Less than 34); AST (SGOT) 11 U/L (11-34); Albumin 3.7 g/dL (3.1-4.5); Alkaline Phosphatase 62 U/L (40-110); Anion Gap 13 mmol/L (10-20); BUN (Urea Nitrogen) 11 mg/dL (7.0-18.7); Bilirubin, Total 0.3 mg/dL (0.3-1.2); Calc. Creatinine Clearance 0 mL/min (70-130); Calcium 8.8 mg/dL (7.8-10.44); Carbon Dioxide 25 mmol/L (22-29); Chloride 104 mmol/L (98-107); Estimated GFR 106; Globulin 3.1 g/dL (2.4-3.5); Glucose 250 mg/dL (70-105); Potassium 3.7 mmol/L (3.5-5.1); Protein, Total 6.8 g/dL (6.0-8.3); Sodium 138 mmol/L (136-145)
[2024-03-29 16:54] LABS: Troponin I Less than 0.010 ng/mL (< 0.028)
[2024-03-29 17:03] LABS: BHCG - Serum Negative (NEGATIVE); Pregs Control Background? CLEAR/WHITE (CLR/WHITE); Pregs Control Bar Appear? YES (CONTROL BAR)
[2024-03-29] MEDS ORDERED: Ketorolac Tromethamine 30 MG (1 mL) VIAL ONE (17:14)
== END 2024-03-29 17:57 | disposition home or self-care (01) ==
LOC: CSHERS 13:46
DX: I10 Essential (primary) hypertension (principal); R07.89 Other chest pain; G43.909 Migraine, unspecified, not intractable, without status migrainosus; E11.9 Type 2 diabetes mellitus without complications
CPT/HCPCS: 36415; 70450; 71045; 80053; 84484; 84703; 85025; 93005; 93010; 96374; 96375; J1200; J1885; J2765

== ENCOUNTER 2024-11-01 12:28 | Emergency (ER) | payer OTHER, MEDICAID ==
[~2024-11-01 12:28] MED LIST changes: -Iopamidol 300 61% 100 ML VIAL FS ONE; +Iopamidol 370 76% 100 ML VIAL ONE
[2024-11-01 14:01] LABS: #Basophils Less than 0.03 10x3/uL (0.0-0.2); #Eosinophils 0.11 10x3/uL (0.0-0.5); #Monocytes 0.37 10x3/uL (0.0-1.1); #Neutrophils 3.67 10x3/uL (1.5-8.4); %Basophils 0.3 % (0.0-2.0); %Eosinophils 1.5 % (0.0-6.0); %Lymphocytes 44.5 % (18.0-47.0); %Monocytes 4.9 % (0.0-10.0); %Neutrophils 48.4 % (40.0-75.0); Hematocrit 45.2 % (34.9-44.5); Hemoglobin 14.3 g/dL (12.0-15.5); Mean Corpuscular Hemoglobin 26.5 pg (27.0-33.0); Mean Corpuscular Volume 83.7 fL (81.6-98.3); Platelet Count 370 10x3/uL (150-450); Red Blood Cell (RBC) Count 5.40 10x6/uL (3.90-5.03); White Blood Cell (WBC) Count 7.57 10x3/uL (3.5-10.5)
[2024-11-01 14:16] LABS: ALT (SGPT) 10 U/L (Less than 34); AST (SGOT) 11 U/L (11-34); Albumin 3.5 g/dL (3.1-4.5); Alkaline Phosphatase 53 U/L (40-110); Anion Gap 14 mmol/L (10-20); BUN (Urea Nitrogen) 9 mg/dL (7.0-18.7); Bilirubin, Total 0.3 mg/dL (0.3-1.2); Calc. Creatinine Clearance 0 mL/min (70-130); Calcium 8.9 mg/dL (7.8-10.44); Carbon Dioxide 23 mmol/L (22-29); Chloride 103 mmol/L (98-107); Globulin 2.6 g/dL (2.4-3.5); Glucose 399 mg/dL (70-105); Potassium 4.2 mmol/L (3.5-5.1); Sodium 136 mmol/L (136-145)
[2024-11-01 14:22] LABS: Troponin I Less than 0.010 ng/mL (< 0.028)
[2024-11-01] MEDS ORDERED: Aspirin Chewable 81 MG TAB ONE (14:25)
[2024-11-01] MEDS ORDERED: Nitroglycerin 0.4 MG TAB 1 EACH ONE (14:26)
== END 2024-11-01 16:20 | disposition home or self-care (01) ==
LOC: CSHERS 12:28
DX: R07.9 Chest pain, unspecified (principal); E11.9 Type 2 diabetes mellitus without complications; I10 Essential (primary) hypertension
CPT/HCPCS: 36415; 71046; 71275; 80053; 83880; 84484; 85025; 85379; 93005

== ENCOUNTER 2025-02-15 10:44 | Emergency (ER) | payer MEDICARE, MEDICAID, OTHER ==
[2025-02-15] MEDS ORDERED: Ondansetron PF 4 MG/2 ML Vial ONE ×2 (11:12→13:00)
[2025-02-15 11:13] LABS: #Basophils Less than 0.03 10x3/uL (0.0-0.2); #Eosinophils 0.10 10x3/uL (0.0-0.5); #Monocytes 0.38 10x3/uL (0.0-1.1); #Neutrophils 3.79 10x3/uL (1.5-8.4); %Basophils 0.3 % (0.0-2.0); %Eosinophils 1.3 % (0.0-6.0); %Lymphocytes 42.5 % (18.0-47.0); %Monocytes 5.1 % (0.0-10.0); %Neutrophils 50.5 % (40.0-75.0); Hematocrit 39.6 % (34.9-44.5); Hemoglobin 13.0 g/dL (12.0-15.5); Mean Corpuscular Hemoglobin 25.9 pg (27.0-33.0); Mean Corpuscular Volume 79.0 fL (81.6-98.3); Platelet Count 330 10x3/uL (150-450); Red Blood Cell (RBC) Count 5.01 10x6/uL (3.90-5.03); White Blood Cell (WBC) Count 7.50 10x3/uL (3.5-10.5)
[2025-02-15 11:31] LABS: ALT (SGPT) 11 U/L (Less than 34); AST (SGOT) 17 U/L (11-34); Albumin 3.5 g/dL (3.1-4.5); Alkaline Phosphatase 50 U/L (40-110); Anion Gap 13 mmol/L (10-20); BUN (Urea Nitrogen) 8 mg/dL (7.0-18.7); Bilirubin, Total 0.4 mg/dL (0.3-1.2); Calc. Creatinine Clearance 0 mL/min (70-130); Calcium 8.5 mg/dL (7.8-10.44); Carbon Dioxide 25 mmol/L (22-29); Chloride 102 mmol/L (98-107); Globulin 2.9 g/dL (2.4-3.5); Glucose 179 mg/dL (70-105); Lipase 15 U/L (8-78); Potassium 3.7 mmol/L (3.5-5.1); Sodium 136 mmol/L (136-145)
[2025-02-15 12:50] LABS: Glucose, Urine (Dipstick) Normal (Negative); Leukocyte 100 (Negative); Protein, Urine (Dipstick) 100 mg/dl (Neg-Trace); Specific Gravity, Urine 1.025 (1.005-1.030)
[2025-02-15] MEDS ORDERED: Ketorolac Tromethamine 30 MG (1 mL) VIAL ONE (13:00)
[2025-02-15 13:09] LABS: Bacteria/HPF 4+ HPF (None Seen); CAUTI Indications for Culture Pelvic or flank pain
[2025-02-15 13:10] LABS: Urine Culture Reflex No No
[2025-02-15] MEDS ORDERED: cefTRIAXone (ROCEPHIN) 1 GM VIAL ONE (13:35)
== END 2025-02-15 18:05 | disposition home or self-care (01) ==
LOC: CSHERS 10:44
DX: N30.00 Acute cystitis without hematuria (principal); N83.201 Unspecified ovarian cyst, right side; N20.0 Calculus of kidney; E11.9 Type 2 diabetes mellitus without complications; I10 Essential (primary) hypertension
CPT/HCPCS: 74178; 76830; 76856; 80053; 81001; 83690; 85025; 93976; J0696; J1885; J2270; J2405; J3010; 36415; 96365; 96375; 96376